=== PATIENT | female | born 2000 | race Caucasian/White ===

== ENCOUNTER 2019-08-16 10:00 | Emergency (ER) | payer BC, MEDICAID ==
[2019-08-16 10:51] LABS: INR 0.99 (0.82-1.09)
--- NOTE | 2019-08-16 10:53 | ED ---
Neurological HPI - HPI Summary HPI Summary: This pt is a 19 y/o female presenting to [facility] for a spinal tap today. Pt reports she was diagnosed for optic neuritis 2.5 - 3 weeks ago. Pt notes she saw Dr. Kwon and he advised patient to come in to the ED today for a lumbar puncture and then follow up in their office. Pt reports Dr. Kwon wants to rule out MS. Pt currently denies any visual problems now. Denies any pain. Denies any other symptoms, such as chest pain, SOB, nausea, vomiting. No PMHx. - History of Current Complaint Chief Complaint: EDGeneral Stated Complaint: SPINAL TAP PER PT Time Seen by Provider: 08/16/19 10:12 Hx Obtained From: Patient Onset/Duration: Started weeks ago, Still Present Timing: Constant Onset Severity: Moderate Current Severity: None Pain Intensity: 0 - denies any pain Pain Scale Used: 0-10 Numeric Character: Visual Changes Aggravating: Nothing Alleviating: Nothing Associated Signs and Symptoms: Positive: Visual Changes. Negative: Pain, Nausea /Vomiting, Fever, Chest Pain, Shortness of Breath - Allergy/Home Medications Allergies/Adverse Reactions: Allergies Allergy/AdvReac Type Severity Reaction Status Date / Time No Known Allergies Allergy Verified 08/16/19 10:06 PMH/Surg Hx/FS Hx/Imm Hx Endocrine/Hematology History: Denies: Hx Diabetes Cardiovascular History: Denies: Hx Hypertension Infectious Disease History: No Infectious Disease History: Denies: Traveled Outside the [place] in Last 30 Days - Family History Known Family History: Negative: Cardiac Disease - Social History Alcohol Use: None Substance Use Type: Reports: None Smoking Status (MU): Never Smoked Tobacco Review of Systems Negative: Fever, Chills Positive: Blurred Vision Cardiovascular: Negative Respiratory: Negative Gastrointestinal: Negative Neurological: Other - POSITIVE: optic neuritis All Other Systems Reviewed And Are Negative: Yes Physical Exam - Summary Physical Exam Summary: General: Well appearing, no distress HEENT: PERRL Cardiovascular: Skin is well perfused Pulmonary: No respiratory distress, no tachypnea Abdomen: Non-distended Skin: Warm, pink, dry MSK: No edema Psych: Normal affect Neuro: A&Ox3 Triage Information Reviewed: Yes Vital Signs On Initial Exam: Initial Vitals Temp Pulse Resp BP Pulse Ox 97.8 F 74 16 141/80 97 08/16/19 10:03 08/16/19 10:03 08/16/19 10:03 08/16/19 10:03 08/16/19 10:03 Vital Signs Reviewed: Yes Procedures - Sedation Patient Received Moderate/Deep Sedation with Procedure: No Diagnostics - Vital Signs Vital Signs Temp Pulse Resp BP Pulse Ox 08/16/19 10:03 97.8 F 74 16 141/80 97 - Laboratory Lab Statement: Any lab studies that have been ordered have been reviewed, and results considered in the medical decision making process. Re-Evaluation - Re-Evaluation First Eval Re-Evaluation Time: 11:34 Comment: Dr. Albrecht completed lumbar puncture procedure. Course/Dx - Course Course Of Treatment: 19 y/o F presents for LP for concern for MS. - LP performed, can follow up outpatient - Diagnoses Provider Diagnoses: Optic neuritis Discharge ED - Sign-Out/Discharge Documenting (check all that apply): Patient Departure - Discharge home - Discharge Plan Condition: Stable Disposition: HOME Patient Education Materials: Lumbar Puncture (ED) Referrals: Lisa Cote MD [Primary Care Provider] - Justino Kwon MD [Medical Doctor] - Additional Instructions: You were seen in the emergency department for a lumbar puncture. Please follow up with neurology Please follow up with your primary care doctor in next 2-3 days and return to emergency department for concerning symptoms. It was a pleasure taking care of you today. - Billing Disposition and Condition Condition: STABLE Disposition: Home - Attestation Statements Document Initiated by Micaelaibe: Yes Documenting Scribe: Ana M Ellis Provider For Whom Micaelaibleatha is Documenting (Include Credential): Nic Covarrubias MD Scribe Attestation: I, Ana M Ellis, scribed for Nic Covarrubias MD on 08/16/19 at 1420. Scribe Documentation Reviewed: Yes Provider Attestation: The documentation as recorded by the Ana M nolasco accurately reflects the service I personally performed and the decisions made by me, Nic Covarrubias MD Status of Scribe Document: Viewed
[2019-08-16] MEDS: Lidocaine 1% INJ* 10 MG/ML 30 ML SDV INJ ONE (11:10)
[2019-08-16 12:04] LABS: Body Fluid Source Cerebral Spinal
[2019-08-16 12:07] VITALS: BP 123/84
[2019-08-16 12:19] LABS: CSF Glucose 51 mg/dL (40-70)
[2019-08-16 13:07] LABS: Body Fluid Mono 2 %
--- NOTE | 2019-08-16 14:49 | OP ---
Operative Report - Blank - Operative Report Date of Operation: 08/16/19 Note: Lumbar Puncture Procedure Note Pre-operative Diagnosis: Demyelinating disease, suspect multiple sclerosis Post-operative Diagnosis: same Indications: Diagnostic Procedure Details Consent: Informed consent was obtained. Time out was performed with DREA Clarke at 11:15 AM. A female behavioral health assistant was present. Risks of the procedure were discussed including: infection, bleeding, pain and headache. Under sterile conditions the patient was positioned in the LEFT lateral decubitus position in a semi- position. Betadine solution and sterile drapes were utilize. A 20-gauge 3.5-inch spinal needle was inserted at the L3- L4 interspace. Findings 9 cc of clear spinal fluid was obtained Opening Pressure: 10 cm H2O pressure Complications: None Condition: stable Plan Obtain CSF laboratory data: cell count and differential, gram stain and culture , glucose, protein, IGG index, oligoclonal bands CSF & Serum, Lyme disease PCR , angiotensin converting enzyme, serum IGG and oligoclonal bands. Follow-up with Dr. Kwon. Adele Albrecht MD 08/16/2019 12:48 PM
[2019-08-17 15:51] LABS: CSF VDRL Negative (Negative)
[2019-08-17 17:00] LABS: CSF Albumin 14.7 mg/dL (<=27.0); CSF IgG/Albumin Ratio 0.27 (<=0.21); CSF Immunoglobulin G 3.9 mg/dL (<=8.1); CSF Immunoglobulin G Synthesis 9.07 mg/24 h (<=12); Serum IgG/Albumin Ratio 0.27 (<=0.40)
[2019-08-17 19:25] LABS: B garinii/B afzelii PCR Negative (Negative); B mayonii PCR Negative (Negative)
== END 2019-08-16 11:45 | disposition home or self-care (01) ==
LOC: ED 10:00
DX: H46.9 Unspecified optic neuritis (principal)
CPT/HCPCS: 36415; 62270; 82040; 82042; 82164; 82784; 82945; 83916; 84157; 85610; 86255; 86592; 87070; 87205; 87476; 87798; 89051; 99282